=== PATIENT | female | born 1935 | race Hispanic/Latino ===

== ENCOUNTER 2017-01-13 07:02 | Emergency (ER) | payer MEDICARE | END 2017-01-13 07:29 | disposition home or self-care (01) | LOC: NAV ERS 07:02 | DX: B02.9 Zoster without complications (principal); I10 Essential (primary) hypertension; M06.9 Rheumatoid arthritis, unspecified; E78.5 Hyperlipidemia, unspecified; E78.00 Pure hypercholesterolemia, unspecified; F41.9 Anxiety disorder, unspecified; Z87.442 Personal history of urinary calculi | CPT/HCPCS: 99283 ==

== ENCOUNTER 2017-01-28 18:48 | Inpatient (IN) | payer MEDICARE ==
[2017-01-28] MEDS ORDERED: Oseltamivir 75 MG CAP ONE (19:57)
[2017-01-28 20:01] LABS: ALT (SGPT) 25 U/L (0-55); AST (SGOT) 30 U/L (5-34); Albumin 3.2 g/dL (3.4-4.8); Alkaline Phosphatase 142 U/L (40-150); Anion Gap 15 mmol/L (10-20); BUN (Urea Nitrogen) 20 mg/dL (9.8-20.1); Bilirubin, Total 0.5 mg/dL (0.2-1.2); Calc. Creatinine Clearance 0 mL/min (70-130); Calcium 8.4 mg/dL (7.8-10.44); Carbon Dioxide 22 mmol/L (23-31); Chloride 82 mmol/L (98-107); Estimated GFR-MDRD 80; Globulin 2.9 g/dL (2.4-3.5); Glucose 114 mg/dL (83-110); INR-International Normal Ratio 1.1; PTT 33.7 SEC (22.9-36.1); Potassium 4.6 mmol/L (3.5-5.1); Protein, Total 6.1 g/dL (5.8-8.1); Prothrombin Time 14.1 SEC (12.0-14.7)
[2017-01-28 20:09] LABS: Sodium 114 mmol/L (136-145)
[2017-01-28 20:14] LABS: #Basophils 0.1 thou/uL (0.0-0.2); #Eosinphils 0.2 thou/uL (0.0-0.7); #Lymphocytes 2.4 thou/uL (1.20-3.40); #Monocytes 0.6 thou/uL (0.11-0.59); #Neutrophils 3.4 thou/uL (1.40-6.50); %Basophils 1.8 % (0.0-1.0); %Eosinophils 2.9 % (0.0-10.0); %Lymphocytes 35.5 % (21.0-51.0); %Monocytes 8.9 % (0.0-10.0); %Neutrophils 50.9 % (42.0-75.0); Hemoglobin 10.1 g/dL (12.0-16.0); Mean Corpuscular HGB CONC 32.9 g/dL (32.0-36.0); Mean Corpuscular Hemoglobin 28.8 pg (27.0-31.0); Mean Corpuscular Volume 87.4 fl (81.0-99.0); Mean Platelet Volume 5.5 fL (7.4-10.4); Platelet Count 391 thou/uL (130-400); RBC Distribution Width 12.8 % (11.5-14.5); Red Blood Cell (RBC) Count 3.51 mill/uL (4.20-5.40); White Blood Cell (WBC) Count 6.7 thou/uL (4.8-10.8)
[2017-01-28 20:19] LABS: CKMB 1.9 ng/mL (0-6.6); Troponin I 0.015 ng/mL (< 0.028)
--- NOTE | 2017-01-28 20:28 | RAD ---
AP CHEST: History: Cough, congestion. Date: 01-28-17 Comparison: 11-06-16 FINDINGS: AP chest demonstrates severe bilateral shoulder osteoarthritic changes. Calcification of the aorta is seen. The lungs are well aerated. No evidence of active intrathoracic disease noted. No eviden ce of effusions, pneumonia, or pneumothorax seen. IMPRESSION: Bilateral shoulder osteoarthritic changes noted. POS: [facility]
[2017-01-28] MEDS ORDERED: Dextrose 5 % And 0.9 % NaCl 1,000 ML ONE (20:47)
[2017-01-28] MEDS ORDERED: Dextrose 5 % And 0.9 % NaCl 1,000 ML IV SCH (23:15)
[2017-01-28] MEDS ORDERED: Acetaminophen 325 MG TAB PO PRN (23:17)
[2017-01-28] MEDS ORDERED: Oseltamivir 75 MG CAP PO SCH (23:30)
[2017-01-28] MEDS: HYDROcodone/Acetaminophen 7.5/325 mg Tablet PO SCH (23:43)
--- NOTE | 2017-01-29 03:20 | HP ---
DATE OF ADMISSION: 01/28/2017 HISTORY OF PRESENT ILLNESS: Ms. Mercedes is an 81-year-old female that has the past several days, had increasing cough, cold, or congestion. She has had fever and chills and body aches. She developed some chest pain today, so her family brought her to the emergency room to be evaluated. The patient was seen by the ER physician and found to be cardiac stable, but noted to have significant cough, cold, congestion. She was found to have positive influenza A and influenza B. She was admitted to the hospital for IV hydration and for Tamiflu. She also has neuropathy pain from her recent shingles PAST MEDICAL HISTORY: Significant for following, 1. Rheumatoid arthritis. 2. Gastroesophageal reflux. 3. Peripheral neuropathy. 4. Severe degenerative joint disease. 5. Osteopenia. 6. Recurrent urinary tract infections. 7. Hyperactive bladder. 8. Hypertension. 9. Anxiety depressive disorder. 10. Hyperlipidemia. 11. Severe peripheral vascular disease. PAST SURGICAL HISTORY: Positive for cholecystectomy in 1959, myomectomy in 1973, hysterectomy in 1979, stents in one leg 2009. ALLERGIES: Reveal the patient is allergic to ZOFRAN and VANCOMYCIN, which causes swelling. CURRENT MEDICATIONS: Reveal patient is presently on the followin. Plavix 75 mg once a day. 2. Lisinopril 10 mg daily. 3. Pravastatin 10 mg at bedtime. 4. Gabapentin 1 capsule in the morning, 300 mg 1 capsule at noon, 300 mg of 2 capsules at bedtime. 5. Bentyl 20 mg t.i.d. 6. Celexa 20 mg daily. 7. Clonazepam 0.5 mg 1 tablet up to 3 times a day as needed for anxiety. 8. [place] 7.5 one tablet as needed every 6 hours for severe pain. REVIEW OF SYSTEMS: Reveals the patient had some fever, chills, achiness, and chronic cough. She has increased congestion and nasal rhinorrhea. She denies any chest pain except for this morning, which was very difficult to elicit what type of chest pain she was having . She has no complaints of palpitations. Respiratory hull, she has chronic cough that has increased over the last several days. She has had upper respiratory signs and symptoms, but denied any wheezing. She denies any nausea, vomiting, and just has had very poor appetite. She has had a history of constipation in the past. Denies any urinary urgency, frequency, dysuria. States she has achiness all over. PHYSICAL EXAMINATION: GENERAL: Reveals a well-developed, slightly obese white female in no apparent distress at this time. HEENT: Reveals normocephalic, nontraumatic cranium. Pupils are equally round. Nose reveals rhinorrhea. Boggy turbinates. Throat is slightly dry. NECK: Supple without mass, nodes, or bruits, right side. CHEST: Reveals raspy type, hacky type cough. No rales or rhonchi are heard. No wheezes are heard. HEART: Reveals a regular rate and rhythm without murmurs, gallops, or rubs. ABDOMEN: Soft, nontender without organomegaly. Normal bowel sounds are noted. No rebound or guarding is noted. : Deferred. EXTREMITIES: Reveal no clubbing, cyanosis, or edema. NEUROLOGIC: Patient does have significant rheumatoid arthritis and degenerative joint disease. IMPRESSION: 1. Positive for influenza A and influenza B. 2. Upper respiratory infection. 3. Hypertension. 4. Peripheral vascular disease. 5. Gastroesophageal reflux. 6. Hyperlipidemia. 7. Anxiety state. 8. Overactive bladder. 9. Osteopenia. 10. Dehydration. 11. History in the year of small-bowel obstruction. PLAN: 1. The patient will be started on Tamiflu 75 mg b.i.d. 2. IV hydration. Gentle intravenous hydration. 3. Encourage the patient to eat. 4. We will give the patient DuoNebs as needed. 5. Encourage the patient to drink lots of liquids. 6. MiraLax for constipation and dehydration. 7. Patient up and out of bed if necessary, we will start physical therapy. 8. Continue supportive care. 9. Dr Kerr will see in the AM. MTDD
[2017-01-29 06:30] LABS: Anion Gap 14 mmol/L (10-20); BUN (Urea Nitrogen) 13 mg/dL (9.8-20.1); Calc. Creatinine Clearance 71 mL/min (70-130); Calcium 8.5 mg/dL (7.8-10.44); Carbon Dioxide 22 mmol/L (23-31); Chloride 88 mmol/L (98-107); Estimated GFR-MDRD Greater than 90; Glucose 111 mg/dL (83-110); Potassium 3.9 mmol/L (3.5-5.1); Sodium 120 mmol/L (136-145)
[2017-01-29 06:32] LABS: CKMB 1.8 ng/mL (0-6.6); Troponin I 0.014 ng/mL (< 0.028)
[2017-01-29] MEDS: HYDROcodone/Acetaminophen 7.5/325 mg Tablet PO SCH (06:32)
[2017-01-29] MEDS: Oseltamivir 75 MG CAP PO SCH ×2 (09:32→20:08)
[2017-01-29 11:42] VITALS: BMI 23.8
[2017-01-29 13:01] LABS: Bilirubin Negative (Negative); Blood, Urine Moderate (Negative); Clarity Clear (Clear); Glucose, Urine (Dipstick) Negative (Negative); Leukocyte Trace (Negative); Nitrite Negative (Negative); Protein, Urine (Dipstick) Negative (Neg-Trace); Specific Gravity, Urine 1.015 (1.005-1.030); Urobilinogen 0.2 mg/dL (0.2-1.0)
[2017-01-29] MEDS ORDERED: HYDROcodone/Acetaminophen 7.5/325 mg Tablet PO PRN (13:22)
[2017-01-29] MEDS ORDERED: clonazePAM 0.5 MG TAB PO PRN (13:22)
[2017-01-29 13:32] LABS: Bacteria/HPF 2+ HPF (None Seen); Squamous Epithelial 0-3 HPF (0-3)
--- NOTE | 2017-01-29 14:14 | PRG ---
DATE OF SERVICE: 01/29/2017 SUBJECTIVE: Ms. Mercedes is feeling better. She denies any complaints. She wants to go home. He r daughter is in the room. She was admitted last night with influenza A and B positive along with h yponatremia likely due to dehydration. She has been on IV fluids and her sodium is up to 120. No f ever. She denies any chest pain or shortness of breath. Her decubitus in her right hip area has be en cultured. No obvious signs of infection. She has been seeing Wound Care in the past. OBJECTIVE: VITAL SIGNS: She is afebrile, heart rate is 107, respiratory rate is 22, oxygen saturation 97%, blo od pressure is 169/78. CARDIOVASCULAR: S1, S2 plus. RESPIRATORY: Normal vesicular breath sounds. ABDOMEN: Soft, nontender, bowel sounds heard in all quadrants. EXTREMITIES: Without cyanosis or clubbing. Evidence for severe rheumatoid arthritis and degenerati ve joint disease. Right hip decubitus with packing, she is being managed by Wound Care. LABORATORY VALUES: White count 6.7, H\T\H is 10.1 and 30.7. Sodium 120 up from 114, BUN and creati nine is 13 and 0.54. IMPRESSION: 1. Influenza A and B positive. 2. Hyponatremia, likely secondary to dehydration. 3. Rheumatoid arthritis. 4. Gastroesophageal reflux disease. 5. Peripheral neuropathy. 6. Peripheral vascular disease. 7. Chronic pain. 8. Chronic decubitus. PLAN: 1. Await cultures. 2. Continue Tamiflu. 3. Continue IV fluids. 4. Resume home medications. 5. Nutritional support. 6. Wound care. 7. Deep venous thrombosis and stress ulcer prophylaxis. Monitor PT and INR. She is on warfarin. 8. Routine laboratory values. 9. Discussed with doctor in detail. 10. Whether she was DNR on last admission, we will confirm with daughter.
[2017-01-29] MEDS: Gabapentin 300 MG CAP PO SCH (20:11)
[2017-01-29] MEDS: Simvastatin 10 MG TAB PO SCH (20:12)
[2017-01-29] MEDS ORDERED: Non-Formulary Item 1 EACH (Gabapentin [Gabapentin] 600 MG) PO SCH (21:00)
[2017-01-29] MEDS ORDERED: Pravastatin Sodium 20 MG TAB PO SCH ×2 (21:00)
[2017-01-29] MEDS: Dextrose 5 % And 0.9 % NaCl 1,000 ML IV SCH (22:40)
[2017-01-30 05:22] LABS: Band 4 % (5-11); Hemoglobin 11.3 g/dL (12.0-16.0); Lymphocytes 13 % (21-51); MDiff Complete? YES; Mean Corpuscular HGB CONC 33.9 g/dL (32.0-36.0); Mean Corpuscular Hemoglobin 28.8 pg (27.0-31.0); Mean Corpuscular Volume 84.8 fl (81.0-99.0); Mean Platelet Volume 5.1 fL (7.4-10.4); Monocytes 4 % (0-10); Neutrophil 79 % (42-75); PLT Morphology Comment Appears Adequate; Platelet Count 426 thou/uL (130-400); RBC Distribution Width 12.8 % (11.5-14.5); RBC Morphology Normal; Red Blood Cell (RBC) Count 3.92 mill/uL (4.20-5.40); White Blood Cell (WBC) Count 12.9 thou/uL (4.8-10.8)
[2017-01-30 05:36] LABS: Anion Gap 12 mmol/L (10-20); BUN (Urea Nitrogen) 7 mg/dL (9.8-20.1); Calc. Creatinine Clearance 84 mL/min (70-130); Calcium 8.2 mg/dL (7.8-10.44); Carbon Dioxide 23 mmol/L (23-31); Chloride 88 mmol/L (98-107); Estimated GFR-MDRD Greater than 90; Glucose 143 mg/dL (83-110); Sodium 120 mmol/L (136-145)
[2017-01-30 05:48] LABS: Potassium 2.8 mmol/L (3.5-5.1)
[2017-01-30] MEDS: D5 NS w/ 40 mEq KCl 1,000 ML IV SCH ×2 (06:05→18:15)
[2017-01-30] MEDS ORDERED: Potassium Chloride 20 MEQ TAB PO SCH (06:15)
[2017-01-30] MEDS: Dextrose 5 % And 0.9 % NaCl 1,000 ML IV SCH ×2 (07:23→21:45)
[2017-01-30] MEDS: Clopidogrel Bisulfate 75 MG TAB PO SCH (08:55)
[2017-01-30] MEDS: Gabapentin 300 MG CAP PO SCH ×3 (08:56→21:45)
[2017-01-30] MEDS: Oseltamivir 75 MG CAP PO SCH ×2 (08:56→21:45)
[2017-01-30] MEDS: Lisinopril 10 MG TAB PO SCH (08:56)
--- NOTE | 2017-01-30 13:49 | PRG ---
DATE OF SERVICE: 01/30/2017. SUBJECTIVE: Ms. Mercedes tried to climb bed apparently and has a bruise in her leg. She has refus ed to take her pills and eat. Discussed with her daughter today and she wants hospice evaluation, s poke with nursing and they are going to contact hospice. She was DNR last time and the daughter con firms that she wants her to remain a DNR, so will order the DNR activity as well. Her potassium was low today and her potassium was ordered, with IV fluids. OBJECTIVE: VITAL SIGNS: She is afebrile, heart rate is 95, respirations are 18, oxygen saturation is 96%, bloo d pressure is 113/85, mainly because she has refused to take her medications. CARDIOVASCULAR: S1, S2 plus. RESPIRATORY: Normal vesicular breath sounds. ABDOMEN: Soft, nontender, bowel sounds heard in all quadrants. EXTREMITIES: Evidence for destructive arthritis. LABORATORY VALUES: White count is 12.9, H\T\H is 11.3 and 33.2. Sodium 120, potassium 2.8, BUN and creatinine 7 and 1.46. IMPRESSION: 1. Hyponatremia. 2. Hypokalemia. 3. Failure to thrive. 4. Influenza. 5. Rheumatoid arthritis. 6. Peripheral vascular disease. 7. Peripheral neuropathy. 8. Gastroesophageal reflux disease. 9. Do not resuscitate status. PLAN: 1. I agree with hospice evaluation. 2. Continue supportive care. 3. Encourage the patient to eat. 4. Pain control. 5. Poor long-term prognosis.
[2017-01-30] MEDS: Simvastatin 10 MG TAB PO SCH (21:45)
[2017-01-31] MEDS: D5 NS w/ 40 mEq KCl 1,000 ML IV SCH (06:58)
[2017-01-31 07:30] LABS: Anion Gap 12 mmol/L (10-20); BUN (Urea Nitrogen) 5 mg/dL (9.8-20.1); Calc. Creatinine Clearance 89 mL/min (70-130); Calcium 8.3 mg/dL (7.8-10.44); Carbon Dioxide 20 mmol/L (23-31); Chloride 95 mmol/L (98-107); Estimated GFR-MDRD Greater than 90; Glucose 123 mg/dL (83-110); Potassium 3.9 mmol/L (3.5-5.1); Sodium 123 mmol/L (136-145)
[2017-01-31 07:40] VITALS: BP 226/91; TEMP 97.3
[2017-01-31 07:42] LABS: Hemoglobin 11.1 g/dL (12.0-16.0); Mean Corpuscular HGB CONC 33.7 g/dL (32.0-36.0); Mean Corpuscular Hemoglobin 29.9 pg (27.0-31.0); Mean Corpuscular Volume 88.8 fl (81.0-99.0); Mean Platelet Volume 5.9 fL (7.4-10.4); Platelet Count 393 thou/uL (130-400); RBC Distribution Width 12.7 % (11.5-14.5); White Blood Cell (WBC) Count 8.2 thou/uL (4.8-10.8)
[2017-01-31 07:43] LABS: Band 2 % (5-11); Eosinophils 2 % (0-10); Lymphocytes 31 % (21-51); MDiff Complete? YES; Monocytes 6 % (0-10); Neutrophil 59 % (42-75); PLT Morphology Comment Appears Adequate
[2017-01-31] MEDS: Lisinopril 10 MG TAB PO SCH (08:19)
[2017-01-31] MEDS: Clopidogrel Bisulfate 75 MG TAB PO SCH (08:19)
[2017-01-31] MEDS: Gabapentin 300 MG CAP PO SCH ×2 (08:19→12:20)
[2017-01-31] MEDS: Oseltamivir 75 MG CAP PO SCH (08:20)
[2017-01-31] MEDS: Dextrose 5 % And 0.9 % NaCl 1,000 ML IV SCH (10:47)
--- NOTE | 2017-01-31 20:19 | DIS ---
DATE OF ADMISSION: 01/28/2017 DATE OF DISCHARGE: 01/31/2017 PRINCIPAL DIAGNOSIS: Influenza. SECONDARY DIAGNOSES: 1. Resolved dehydration. 2. Gastroesophageal reflux disease. 3. Peripheral neuropathy. 4. Rheumatoid arthritis. 5. Peripheral vascular disease. 6. Degenerative joint disease. 7. Anxiety and depression. 8. Hip decubitus. 9. Failure to thrive with decreased p.o. intake. COMPLICATIONS: None. ADVERSE REACTIONS: None. PROCEDURES: None. CONSULTATIONS: None. HOSPITAL COURSE: The patient was admitted on 01/28 with cough and congestion. She was noticed to h ave influenza A and B positive and slightly dehydrated. She was started on IV fluids and Tamiflu. First day, she was doing well, but from then on, she stopped eating, she refuses to eat or drink. S he refused to take her pills. Daughter states that the patient does not want a feeding tube and she wanted hospice consulted. Consult has been made and [facility] will be seeing her on disch arge. She did have low potassium and her IV fluids were changed to D5 normal saline with 40 of K an d her potassium is back to normal. All other laboratory values are normal and she was deemed stable for discharge. She will be admitted to hospice care once she goes home. DISCHARGE MEDICATIONS: Same as admission. I am not sure if she is going to take any of these, but it is supposed to be Plavix 75 mg once a day, Lisinopril 10 mg daily, pravastatin 10 mg daily, gabap entin 300 mg 1 tablet morning and noon and 2 at night, Bentyl 20 mg t.i.d., Citalopram 20 mg daily, Klonopin 0.5 mg t.i.d. p.r.n., [place] 7.5 mg q.6 hours p.r.n. and Tamiflu 75 mg p.o. b.i.d. for 2 mor e days. PROGNOSIS: Poor long-term prognosis. DIET: Will be as tolerated. DISCHARGE INSTRUCTIONS: Continue wound care for her hip decubitus. Family will maintain DNR status . Family is to call me with any questions or concerns. PHYSICAL EXAMINATION: VITAL SIGNS: On the day of discharge, she is afebrile, heart rate is 86, respirations are 18, oxyge n saturation is 99%, blood pressure is 226/91, mainly because she refuses to take her medications. CARDIOVASCULAR SYSTEM: S1 and S2 plus. RESPIRATORY SYSTEM: Normal vesicular breath sounds. ABDOMEN: Soft and nontender. Bowel sounds are heard in all quadrants. EXTREMITIES: Significant destructive arthritis noted. For full details, please see chart. LABORATORY DATA: White count is 8.2, H\T\H is 11.1 and 32.8. Sodium 123, potassium 3.9, BUN and cr eatinine is 5 and 1.43, but potassium is up from 2.8 and sodium is up from 114. TOTAL TIME SPENT ON THIS DISCHARGE: 35 minutes.
== END 2017-01-31 16:26 | disposition hospice, home (50) | DRG 193 ==
LOC: NAV ERS 18:48 → NAV ACUTE 20:59
PROVIDERS: ADMIT Internal Medicine; ATTEND Internal Medicine
DX: J10.1 Influenza due to other identified influenza virus with other respiratory manifestations (principal); L89.203 Pressure ulcer of unspecified hip, stage 3; E86.0 Dehydration; B02.23 Postherpetic polyneuropathy; E87.1 Hypo-osmolality and hyponatremia; M06.879 Other specified rheumatoid arthritis, unspecified ankle and foot; K21.9 Gastro-esophageal reflux disease without esophagitis; M19.90 Unspecified osteoarthritis, unspecified site; F32.9 Major depressive disorder, single episode, unspecified; F41.9 Anxiety disorder, unspecified; R62.7 Adult failure to thrive; I70.209 Unspecified atherosclerosis of native arteries of extremities, unspecified extremity; J01.90 Acute sinusitis, unspecified; Z51.5 Encounter for palliative care; Z66 Do not resuscitate; E87.6 Hypokalemia; Z91.14 Patient's other noncompliance with medication regimen; M85.80 Other specified disorders of bone density and structure, unspecified site; N32.81 Overactive bladder; E78.5 Hyperlipidemia, unspecified; Z87.440 Personal history of urinary (tract) infections; I10 Essential (primary) hypertension; Z79.899 Other long term (current) drug therapy
CPT/HCPCS: 36415; 71010; 80048; 80053; 81003; 81015; 82553; 83880; 84484; 85025; 85610; 85730; 87070; 87077; 87086; 87186; 87205; 93005; 97602; A4353; G8996-GN-CI; G8997-GN-CI; J7042